=== PATIENT | female | born 1975 | race Caucasian/White ===

== ENCOUNTER 2023-06-17 18:48 | Emergency (ER) | payer OTHER ==
[~2023-06-17] VITALS: Ht 152.4 cm; Wt 56.7 kg
[2023-06-17 19:12] VITALS: BP_SYST 97; PULSE 65; RESP 20; TEMP 98.1; O2SAT 100
[2023-06-17] MEDS ORDERED: ONDANSETRON HCL 4 MG/2 ML VIAL IVP ONE (19:45)
[2023-06-17] MEDS ORDERED: MORPHINE 4 MG INJ. 4 MG/ML VIAL IVP ONE (19:45)
[2023-06-17] MEDS ORDERED: ACET-2634 PO (20:06)
[2023-06-17] MEDS ORDERED: TRAM50TA2 PO (20:06)
[2023-06-17] MEDS ORDERED: IBUP-1969 PO (20:06)
[2023-06-17] MEDS: MORPHINE 4 MG INJ. 4 MG/ML VIAL IM ONE (20:15)
[2023-06-17] MEDS: ONDANSETRON 4 MG ODT TAB PO ONE (20:16)
[2023-06-17] MEDS: LIDOCAINE JELLY 5 ML TUBE MM ONE (21:11)
[2023-06-17 21:17] VITALS: BP_SYST 109; PULSE 58; RESP 16; TEMP 97.3; O2SAT 98
== END 2023-06-17 21:17 | disposition home or self-care (01) ==
LOC: SED 18:48
DX: T21.11XA Burn of first degree of chest wall, initial encounter (principal); Z79.899 Other long term (current) drug therapy; X08.8XXA Exposure to other specified smoke, fire and flames, initial encounter; Y93.89 Activity, other specified; Y92.89 Other specified places as the place of occurrence of the external cause; Y99.8 Other external cause status
CPT/HCPCS: 99283; 96372; Q0162; J2405; J2270